=== PATIENT | male | born 1965 | race Caucasian/White ===

== ENCOUNTER 2018-10-19 09:42 | Day surgery (SDC) | payer OTHER ==
[~2018-10-19] VITALS: Ht 175.3 cm; Wt 78.5 kg
[~2018-10-19 09:42] MED LIST: CHOL100029 PO; METO50TA7 PO; NICO2LOZ8; NS 1,000 ML IV ONE
--- NOTE | 2018-10-19 12:01 | ROOR ---
Patient Name: Eddy Ortiz Procedure Date: 10/19/2018 11:36 AM Date of : 1965 Age: 52 Room: [facility] Gender: Male Note Status: Finalized Procedure: Total Colonoscopy to Cecum + ileoscopy Indications: Colon cancer screening in patient at increased risk: Family history of 1st-degree relative with colon polyps Providers: Bennie Encarnacion MD Referring MD: [facility] Requesting Provider: Medicines: Monitored Anesthesia Care Complications: No immediate complications. Procedure: Pre-Anesthesia Assessment: - The heart rate, respiratory rate, oxygen saturations, blood pressure, adequacy of pulmonary ventilation, and response to care were monitored throughout the procedure. The Colonoscope was introduced through the anus and advanced to the terminal ileum, with identification of the appendiceal orifice and IC valve. The colonoscopy was performed without difficulty. The patient tolerated the procedure well. The quality of the bowel preparation was excellent. Findings: The perianal and digital rectal examinations were normal. Non-bleeding internal hemorrhoids were found during retroflexion. The hemorrhoids were small and Grade I (internal hemorrhoids that do not prolapse). No other significant abnormalities were identified in a careful examination of the remainder of the colon. The exam was otherwise without abnormality on direct and retroflexion views. The terminal ileum appeared normal. Impression: - Non-bleeding internal hemorrhoids. - The examination was otherwise normal on direct and retroflexion views. - The examined portion of the ileum was normal. - No specimens collected. - The exam was otherwise normal to the cecum. Recommendation: - Patient has a contact number available for emergencies. The signs and symptoms of potential delayed complications were discussed with the patient. Return to normal activities tomorrow. Written discharge instructions were provided to the patient. - High fiber diet. - Discharge patient to home. - Continue present medications. - Repeat colonoscopy in 5 years for screening purposes. - Return to referring physician. - The findings and recommendations were discussed with the patient's family. Bennie Encarnacion MD Bennie Encarnacion MD 10/19/2018 12:01:04 PM Electronically signed by Bennie Encarnacion MD Number of Addenda: 0 Note Initiated On: 10/19/2018 11:36 AM Estimated Blood Loss: Estimated blood loss: none.
[2018-10-19] MEDS ORDERED: LIDOCAINE 2% INJ 100 MG/5 ML SDV (FOR ANES.) As Ordered ONE (12:09)
[2018-10-19] MEDS ORDERED: PROPOFOL 200 MG/20 ML VIAL As Ordered ONE (12:09)
[2018-10-19 12:22] VITALS: BP 116/84
== END 2018-10-19 12:25 | disposition home or self-care (01) ==
LOC: M OPP 09:42
PROVIDERS: ATTEND Internal Medicine Gastroenterology
DX: Z12.11 Encounter for screening for malignant neoplasm of colon (principal); Z83.71 Family history of colonic polyps; K64.0 First degree hemorrhoids; Z79.899 Other long term (current) drug therapy; Z87.891 Personal history of nicotine dependence

== ENCOUNTER 2022-03-03 12:54 | Emergency (ER) | payer OTHER ==
[~2022-03-03] VITALS: Ht 175.3 cm; Wt 75.0 kg
[~2022-03-03 12:54] MED LIST changes: -NS 1,000 ML IV ONE
[2022-03-03 21:26] LABS: BASO # 0.1 10^3/uL (0.0-0.2); BASO % 0.5 % (0.0-1.0); EOS % 0.2 % (0.0-3.0); HEMATOCRIT 49.9 % (42.0-52.0); HEMOGLOBIN 16.8 g/dl (13.5-17.5); LYMPH # 2.1 10^3/uL (1.5-5.0); LYMPH % 22.8 % (24.0-44.0); MEAN CORPUSCULAR HEMOGLOBIN 30.5 pg (27.0-33.0); MEAN CORPUSCULAR HGB CONC 33.7 g/dl (32.0-36.5); MEAN CORPUSCULAR VOLUME 90.7 fl (80.0-96.0); MONO # 0.9 10^3/uL (0.0-0.8); MONO % 9.5 % (2.0-8.0); NEUTROPHILS # 6.2 10^3/uL (1.5-8.5); NEUTROPHILS % 66.7 % (36.0-66.0); PLATELET COUNT, AUTOMATED 275 10^3/uL (150-450); WHITE BLOOD COUNT 9.3 10^3/uL (4.0-10.0)
[2022-03-03] MEDS ORDERED: ALPRAZolam 0.5 MG TAB PO ONE (21:35)
[2022-03-03 21:52] LABS: BLOOD UREA NITROGEN 10 MG/DL (9-23); CARBON DIOXIDE LEVEL 28 MMOL/L (20-31); CHLORIDE LEVEL 101 MMOL/L (98-107); CREATININE FOR GFR 0.79 MG/DL (0.70-1.30); GLOMERULAR FILTRATION RATE > 60.0 (>56); GLUCOSE, FASTING 121 MG/DL (60-100); POTASSIUM SERUM 4.4 MMOL/L (3.5-5.1); SODIUM LEVEL 137 MMOL/L (136-145)
[2022-03-03 22:00] LABS: INR 0.94; PROTHROMBIN TIME 12.8 SECONDS (12.5-14.5)
[2022-03-03 22:01] LABS: PARTIAL THROMBOPLASTIN TIME 31.1 SECONDS (24.8-34.2)
[2022-03-03 22:02] LABS: THYROXINE (T4) 15.6 UG/DL (4.5-10.9)
[2022-03-03 22:03] LABS: D-DIMER QUANT 329.48 ng/ml (<500)
[2022-03-03 22:03] LABS: FREE THYROXINE INDEX 5.1 % (1.4-3.8); T UPTAKE 32.4 % (22.5-37.0); THYROID STIMULATING HORMONE 1.938 uIU/ML (0.55-4.78)
[2022-03-03 22:38] LABS: CPK CREATINE PHOSPHOKINASE 50 U/L (46-171)
[2022-03-03] MEDS ORDERED: LABETALOL 100MG/20ML VIAL IV STA (23:53)
[2022-03-03] MEDS ORDERED: METOPROLOL TART 50 MG TAB PO ONE (23:55)
[2022-03-04] MEDS ORDERED: HYDR-3363 PO (00:32)
[2022-03-04] MEDS ORDERED: METO25TA4 PO (00:32)
[2022-03-04] MEDS ORDERED: METOPROLOL TART 25 MG TABLET PO ONE (00:40)
[2022-03-04 00:54] VITALS: BP 131/94
[2022-03-04 12:43] LABS: CK-MB VALUE MASS < 1.0 NG/ML (<3.6)
== END 2022-03-04 00:56 | disposition home or self-care (01) ==
LOC: M ED 21:46
DX: R00.0 Tachycardia, unspecified (principal); I16.0 Hypertensive urgency; F41.9 Anxiety disorder, unspecified; Z79.899 Other long term (current) drug therapy; Z79.811 Long term (current) use of aromatase inhibitors

== ENCOUNTER 2024-01-13 08:49 | Day surgery (SDC) | payer OTHER ==
[~2024-01-13] VITALS: Ht 175.3 cm; Wt 83.0 kg
[~2024-01-13 08:49] MED LIST changes: +B-12100010 PO; +D-101000 PO; +HYDR-3363 PO; +METO25TA4 PO
[2024-01-13] MEDS ORDERED: propofoL 200 MG/20 ML VIAL As Ordered ONE (10:09)
[2024-01-13] MEDS ORDERED: LIDOCAINE 2% 100MG/5ML SDV (FOR ANES.) As Ordered ONE (10:09)
[2024-01-13 10:22] VITALS: TEMP 97.6
[2024-01-13 10:46] VITALS: BP 128/82; O2SAT 95
== END 2024-01-13 10:51 | disposition home or self-care (01) ==
LOC: M OPP 08:49
PROVIDERS: ATTEND Internal Medicine Gastroenterology
DX: Z12.11 Encounter for screening for malignant neoplasm of colon (principal); D12.5 Benign neoplasm of sigmoid colon; K57.30 Diverticulosis of large intestine without perforation or abscess without bleeding; K64.0 First degree hemorrhoids; Z83.719 Family history of colon polyps, unspecified; I10 Essential (primary) hypertension; Z79.899 Other long term (current) drug therapy; Z87.891 Personal history of nicotine dependence